=== PATIENT | female | born 1995 | race Caucasian/White ===

== ENCOUNTER 2017-10-24 23:07 | Emergency (ER) | payer BC ==
[~2017-10-24] VITALS: Ht 170.2 cm; Wt 143.0 kg
[2017-10-24 23:11] VITALS: TEMP 37.1; Ht 170.2 cm; Wt 143.0 kg
[2017-10-24] MEDS ORDERED: ARMO150T4 PO (23:54)
[2017-10-25] MEDS ORDERED: IBUPROFEN 600 MG TAB PO STA (00:10)
--- NOTE | 2017-10-25 00:14 | EMERGENCY ROOM VISIT NOTE ---
ED Visit Note First contact with patient: 00:03 CHIEF COMPLAINT: Right ankle injury HISTORY OF PRESENT ILLNESS: This 22-year-old female presents to ER with chief complaint of right ankle injury. The patient states personally 9 PM this evening she was walking in the sidewalk dipped down and she twisted her right ankle. The patient states she heard a crack. The patient was able to walk home but it was painful. The patient denies any numbness and tingling in her toes. The patient has not taken anything for pain. She did apply ice. REVIEW OF SYSTEMS: 6 system review was performed and was negative unless stated otherwise in history of present illness. PMH: No prior significant ankle injury. Tonsillectomy, narcolepsy SOCIAL HISTORY: Patient is a [employer] student. The patient denies any tobacco or alcohol use. PHYSICAL EXAM: Vital Signs: Were reviewed reviewed Nurse's notes. GENERAL: 22- year-old female appears in no acute distress. MENTAL STATUS: Alert, oriented, and cooperative. RIGHT ANKLE: The ankle is swollen and tender over the lateral aspect but the skin is intact and there is no ligamentous instability. There is no deformity. The foot and toes are warm and well-perfused. Sensation to pain and light touch is intact. EMERGENCY DEPARTMENT COURSE: Patient was evaluated. The patient was given Motrin 600 mg p.o. while in the ER. X-ray of the right ankle was ordered interpreted by myself without any evidence of acute fracture. This will later be interpreted by the radiologist. The patient was placed in a gel splint and crutches. The patient was discharged to home in stable condition. DIAGNOSIS: Sprained right ankle DISCHARGE INSTRUCTIONS: Ice and elevation over the next 24 hours. Ibuprofen, 600 mg every 6 hours if needed for pain. Use crutches and wear gel splint until weightbearing is tolerable. If there is no improvement in 3-5 days followup with your doctor or an orthopedic surgeon . Current/Historical Medications Scheduled Armodafinil (Nuvigil), 1 TAB PO QAM Allergies Coded Allergies: No Known Allergies (Unverified , 10/24/17) Vital Signs Date Time Temp Pulse Resp B/P (MAP) Pulse Ox O2 Delivery O2 Flow Rate FiO2 10/24/17 23:11 37.1 104 18 147/76 96 Room Air Departure Information Referrals No Doctor, Assigned (PCP) Patient Instructions My [facility]
[2017-10-25 00:39] VITALS: BP 140/75; PULSE 80; O2SAT 98
--- NOTE | 2017-10-25 06:31 | DIAGNOSTIC IMAGING REPORT ---
R ANKLE MIN 3 VIEWS ROUTINE CLINICAL HISTORY: fall trauma. Pain. COMPARISON: None. DISCUSSION: The bones and joint spaces appear intact. There is no evidence of fracture, dislocation or bony disease. There is no evidence for soft tissue swelling. IMPRESSION: Negative study. The above report was generated using voice recognition software. It may contain grammatical, syntax or spelling errors. Electronically signed by: Luis Harding M.D. 10/25/2017 6:29 AM Dictated Date/Time: 10/25/2017 6:29 AM
== END 2017-10-25 00:40 | disposition home or self-care (01) ==
LOC: C.EDB 23:10 → C.EDA 10-25 00:40
DX: S93.401A Sprain of unspecified ligament of right ankle, initial encounter (principal); Z79.899 Other long term (current) drug therapy; X50.9XXA Other and unspecified overexertion or strenuous movements or postures, initial encounter